=== PATIENT | male | born 1970 | race Caucasian/White ===

== ENCOUNTER 2020-01-04 15:20 | Emergency (ER) | payer SELFPAY ==
[2020-01-04 15:26] VITALS: TEMP 98.5; BMI 28.8
--- NOTE | 2020-01-04 16:52 | PDOC ---
History of Present Illness - General History Source: Patient - History of Present Illness Initial Comments: 01/04/20 16:36 49 y/o Indonesian speaking M w/hx EtOH use disorder BIBEMS s/p seizure. He reports going to the grocery store with a friend, and waking up on the ambulance. He reports most recent seizure was 8 years ago, and has not required AEDs or neuro follow up since then. He reports previously drinking approx 6 drinks daily and has slowly been reducing his EtOH intake to 2 beers every other day. His most recent drink was two days ago. He denies feeling withdrawal symptoms including tremors, anxiety, palpitations. No prior withdrawal seizures. He denies any drug use. Patient spoken to via Indonesian plate sensitizer, [employer] Lettering Machine Operator ID: [id number]. <Hakeem Bellamy - Last Filed: 01/04/20 19:25> <Macy Sepulveda - Last Filed: 01/04/20 20:00> - General Chief Complaint: Altered Mental Status Stated Complaint: FALL Time Seen by Provider: 01/04/20 16:17 Past History - Medical History COPD: No Other medical history: DENIES - Immunization History Immunization Up to Date: No - Psycho-Social/Smoking History Smoking History: Never smoked - Substance Abuse Hx (Audit-C & DAST Scrn) How often the patient has a drink containing alcohol: 2-3 times / week Number of drinks the patient has on a typical day: 3 or 4 How often the patient has six or more drinks on one occasion: Never Score: In Men: 4 or > Positive; In Women: 3 or > Positive: 4 Screen Result (Pos requires Nsg. Audit-10AR): Positive In the last yr the pt used illegal drug/Rx for NonMed reason: No Score: Yes response is considered Positive: 0 Screen Result (Positive result requires Nsg. DAST-10): Negative <Hakeem Bellamy - Last Filed: 01/04/20 19:25> <Macy Sepulveda - Last Filed: 01/04/20 20:00> - Medical History Allergies/Adverse Reactions: Allergies Allergy/AdvReac Type Severity Reaction Status Date / Time No Known Allergies Allergy Verified 01/04/20 15:23 *Physical Exam - Vital Signs Last Vital Signs Temp Pulse Resp BP Pulse Ox 98.5 F 90 18 162/96 100 01/04/20 15:23 01/04/20 15:23 01/04/20 15:23 01/04/20 15:23 01/04/20 15:23 <Hakeem Bellamy - Last Filed: 01/04/20 19:25> - Vital Signs Last Vital Signs Temp Pulse Resp BP Pulse Ox 98.5 F 90 18 162/96 100 01/04/20 15:23 01/04/20 15:23 01/04/20 15:23 01/04/20 15:23 01/04/20 15:23 <Macy Sepulveda - Last Filed: 01/04/20 20:00> ED Treatment Course - LABORATORY CBC & Chemistry Diagram: 01/04/20 15:30 01/04/20 15:30 <Hakeem Bellamy - Last Filed: 01/04/20 19:25> - LABORATORY CBC & Chemistry Diagram: 01/04/20 15:30 01/04/20 15:30 - ADDITIONAL ORDERS Additional order review: Laboratory Results 01/04/20 15:30 Sodium 133 L Potassium 3.6 Chloride 94 L Carbon Dioxide 24 Anion Gap 15 BUN 5.5 L Creatinine 0.9 Est GFR (CKD-EPI)AfAm 117.47 Est GFR (CKD-EPI)NonAf 101.35 Random Glucose 98 Calcium 9.5 Total Bilirubin 0.5 AST 170 H ALT 133 H Alkaline Phosphatase 93 Total Protein 8.1 Albumin 4.1 01/04/20 15:30 RBC 4.16 MCV 92.1 MCHC 33.5 RDW 13.0 MPV 8.9 Neutrophils % 71.1 Lymphocytes % 19.8 Monocytes % 7.6 Eosinophils % 0.5 Basophils % 1.0 - Medications Given in the ED: ED Medications Discontinued Medications Generic Name Dose Route Start Last Admin Trade Name Freq PRN Reason Stop Dose Admin Chlordiazepoxide HCl 50 mg 01/04/20 17:15 01/04/20 18:00 Librium - PO 01/04/20 17:16 50 mg ONCE ONE Administration <Macy Sepulveda - Last Filed: 01/04/20 20:00> Discharge <Hakeem Bellamy - Last Filed: 01/04/20 19:25> - Discharge Information Problems reviewed: Yes - Admission No <Macy Sepulveda - Last Filed: 01/04/20 20:00> - Discharge Information Clinical Impression/Diagnosis: Alcohol abuse, Seizure Condition: Stable Disposition: HOME - Follow up/Referral Referrals: Socrates Lamb MD [Staff Physician] - - Patient Discharge Instructions Patient Printed Discharge Instructions: Alcohol Use Disorder, DI for Drug or Alcohol Withdrawal Additional Instructions: Patient Name: BILL MERLOS THIS IS A PRELIMINARY REPORT FROM [facility] SPECIAL MAKEUP FX ARTIST INSTRUCTOR DATE OF SERVICE: 2020-01-04 17:31:50 IMAGES: 251 EXAM: CT HEAD WITHOUT IV CONTRAST TECHNIQUE: Axial images from the skull base to the vertex. Bone and soft tissue windows were reviewed. One or more of the following dose reduction techniques were used: automated exposure control, adjustment of the mA and/or kV according to patient size, use of iterative reconstructive technique. Contrast: None REASON FOR EXAM: Seizure. COMPARISON: None. FINDINGS: Mild diffuse brain parenchymal atrophy with preservation of the daniels-white differentiation. There is no acute intracranial hemorrhage, mass effect or midline shift. No abnormal intra-axial or extra-axial fluid collection is seen. The periventricular white matter is unremarkable. The ventricles and basilar cisterns are maintained. The bones of the calvarium and imaged skull base demonstrate no acute abnormality. The imaged paranasal sinuses and mastoid air cells : Partial opacification of the left maxillary antrum.. IMPRESSION: 1. No acute territorial infarct, hemorrhage, or space-occupying mass. --- Follow up with your primary care doctor within 3 days regarding your ER visit. Your care is not complete until you follow up. Follow up with a neurologist within 1 week regarding your ER visit. Your care is not complete until you follow up. I have provided you with a referral. Stopping drinking alcohol cold can result in seizure and . Please seek a detoxification program and rehabilitation services at [facility]. [place] [id number] Getting you back on track is our goal [facility] primarily serves individuals of [facility] in need of Behavioral Health Services and is committed to meeting the needs of these patients. We are committed to providing education, promoting health literacy, encouraging preventive health practices, to effectively impact upon the health conditions and status of the community. We work to broaden access to primary care and coordinate services. As a medical provider we offer extensive primary and specialty outpatient services to the medically underserved population of [place]. Services are provided at all times in a manner consistent with high quality, professional expertise and personalized care of patients and their families. [facility] and Behavioral Health Services - The Behavioral Health Services Department of [facility] is a comprehensive and multifaceted service delivery network. Programs are designed to provide a full continuum of care for those seeking chemical dependency treat ment. HIV/AIDS - The HOPE (Healthcare Opportunities Provided with Excellence) Center is dedicated to providing comprehensive care in a compassionate, professional, respectful and ethical manner to every HIV-infected patient and his or her family in [facility]. HYI - As part of our commitment to community health, we participate in and have taken a leadership role in the Healthy [place] Initiative, a community wide partnership aimed at addressing community health concerns of the highest priority. [facility] is accredited by the [facility] Dep[facility] tment and Joint Commission on Accreditation of Hospitals. [facility] is committed to the highest standards of health care. We are conveniently located and easily accessible from all [facility] as well as [place]. To use our Physician Referral Service call [phone]). - Post Discharge Activity Work/Back to School Note: Back to Work
[2020-01-04] MEDS ORDERED: chlordiazePOXIDE HCL 25 MG CAPSULE PO ONE (17:15)
--- NOTE | 2020-01-04 17:21 | PDOC ---
Documentation entered by Jennifer Frederick SCRIBE, acting as scribe for Coretta Saleh MD. Coretta Saleh MD: This documentation has been prepared by the scribe, Jennifer Frederick SCRIBE, under my direction and personally reviewed by me in its entirety. I confirm that the documentation accurately reflects all work, treatment, procedures, and medical decision making performed by me. Attending Attestation - Resident Resident Name: MiaHakeem - ED Attending Attestation I have performed the following: I have examined & evaluated the patient, The case was reviewed & discussed with the resident, I agree w/resident's findings & plan, Exceptions are as noted - HPI HPI: 01/04/20 17:07 The patient is a 49 year old male with a significant past medical history of seizure disorder no longer requiring AEDs (8 years) and etoh abuse who presents to the emergency department, [facility], for a fall and AMS. Patient reports he passed out and was found behind a building; he notes this has happened once before. Patient denies complaints but has tremors in BUE. States he has been weening himself from etoh and is down to 2 beers every other day. States he woke up today feeling "weird" but without any other complaints. Last drink 2 days ago. Last remembers going to the supermarket with a friend and then waking up in the ambulance. Currently reports feeling better. Patient states he does not think he is withdrawing from etoh. Patient denies: fever, chills, headache, dizziness, SOB, nausea, vomiting, cough, chest pain, diarrhea, constipation, dysuria, frequency, urgency, hematuria, or any other related symptoms. Allergies: NKDA 01/04/20 17:19 - Physicial Exam PE: 01/04/20 17:14 General: non-toxic appearing HEENT: small amount of redness above L orbit, no additional bruising or abrasions noted Chest: CTAB, good air entry CVS: + s1 s2 Neuro: Aox3, speech fluent, face symmetric, +tremulousness, responds appropriately to questions, no focal deficits - Medical Decision Making 01/04/20 17:16 49 yo M with suspected seizure, possible etoh withdrawal seizure vs. seizure 2/2 seizure disorder (reports has not required AEDs in many years). Plan: -labs -CT head -librium -reassess This clinical encounter is taking place during a federal and state health care emergency attributable to the novel Wheat Virus pandemic. The [place] of the Department of Health and Human Services has declared, pursuant to the Public Health Service Act 319F-3 (42 U.S.C. 247d-6d), that a covered persons activities related to medical countermeasures against COVID-19 will be immune from liability under Federal and State law. Pt. signed out to incoming night team Heart Score/ECG Review - ECG Impressions Comment:: 01/04/20 17:17 sinus, rate [address] elevations Discharge - Discharge Information Problems reviewed: Yes Clinical Impression/Diagnosis: Alcohol abuse, Seizure Condition: Stable Disposition: HOME - Follow up/Referral Referrals: Socrates Lamb MD [Staff Physician] - - Patient Discharge Instructions Patient Printed Discharge Instructions: Alcohol Use Disorder, DI for Drug or Alcohol Withdrawal Additional Instructions: Patient Name: BILL MERLOS THIS IS A PRELIMINARY REPORT FROM [facility] DUST MIXER DATE OF SERVICE: 2020-01-04 17:31:50 IMAGES: 251 EXAM: CT HEAD WITHOUT IV CONTRAST TECHNIQUE: Axial images from the skull base to the vertex. Bone and soft tissue windows were reviewed. One or more of the following dose reduction techniques were used: automated exposure control, adjustment of the mA and/or kV according to patient size, use of iterative reconstructive technique. Contrast: None REASON FOR EXAM: Seizure. COMPARISON: None. FINDINGS: Mild diffuse brain parenchymal atrophy with preservation of the daniels-white differentiation. There is no acute intracranial hemorrhage, mass effect or midline shift. No abnormal intra-axial or extra-axial fluid collection is seen. The periventricular white matter is unremarkable. The ventricles and basilar cisterns are maintained. The bones of the calvarium and imaged skull base demonstrate no acute abnormality. The imaged paranasal sinuses and mastoid air cells : Partial opacification of the left maxillary antrum.. IMPRESSION: 1. No acute territorial infarct, hemorrhage, or space-occupying mass. --- Follow up with your primary care doctor within 3 days regarding your ER visit. Your care is not complete until you follow up. Follow up with a neurologist within 1 week regarding your ER visit. Your care is not complete until you follow up. I have provided you with a referral. Stopping drinking alcohol cold turkey can result in seizure and . Please seek a detoxification program and rehabilitation services at [facility]. [place] [phone] Getting you back on track is our goal [facility] primarily serves individuals of [facility] in need of Behavioral Health Services and is committed to meeting the needs of these patients. We are committed to providing education, promoting health literacy, encouraging preventive health practices, to effectively impact upon the health conditions and status of the community. We work to broaden access to primary care and coordinate services. As a medical provider we offer extensive primary and specialty outpatient services to the medically underserved population of [facility]. Services are provided at all times in a manner consistent with high quality, professional expertise and personalized care of patients and their families. [facility] and Behavioral Health Services - The Behavioral Health Services Department of [facility] is a comprehensive and multifaceted service delivery network. Programs are designed to provide a full continuum of care for those seeking chemical dependency treatment. HIV/AIDS - The HOPE (Healthcare Opportunities Provided with Excellence) Center is dedicated to providing comprehensive care in a compassionate, professional, respectful and ethical manner to every HIV-infected patient and his or her family in [facility]. HYI - As part of our commitment to community health, we participate in and have taken a leadership role in the Healthy [place] Initiative, a community wide partnership aimed at addressing community health concerns of the highest priority. [facility] is accredited by the [place] [facility] and Joint Commission on Accreditation of Hospitals. [facility] is committed to the highest standards of health care. We are conveniently located and easily accessible from all [facility] as well as [place]. To use our Physician Referral Service call [phone]). - Post Discharge Activity Work/Back to School Note: Back to Work
[2020-01-04 17:26] LABS: EOS % 0.5 % (0-4.5); HEMATOCRIT 38.3 % (35.4-49); HEMOGLOBIN 12.9 GM/dL (11.7-16.9); LYMPH % 19.8 % (8-40); MCH 30.9 pg (25.7-33.7); MCHC 33.5 g/dl (32.0-35.9); MEAN CELL VOLUME 92.1 fl (80-96); MEAN PLT VOLUME 8.9 fl (7.5-11.1); MONO % 7.6 % (3.8-10.2); NEUT % 71.1 % (42.8-82.8); PLATELET COUNT 118 K/MM3 (134-434); RBC 4.16 M/mm3 (4.00-5.60); WHITE BLOOD COUNT 5.9 K/mm3 (4.0-10.0)
[2020-01-04] MEDS ORDERED: chlordiazePOXIDE HCL 25 MG CAPSULE ONE (17:55)
[2020-01-04 18:11] LABS: ALBUMIN 4.1 g/dl (3.4-5.0); BILIRUBIN,TOTAL 0.5 mg/dL (0.2-1); BLOOD UREA NITROGEN 5.5 mg/dL (7-18); CALCIUM 9.5 mg/dL (8.5-10.1); CREATININE 0.9 mg/dL (0.55-1.3); POTASSIUM 3.6 mmol/L (3.5-5.1); TOT PROT 8.1 g/dl (6.4-8.2)
--- NOTE | 2020-01-04 19:48 | PDOC ---
*Physical Exam - Vital Signs Last Vital Signs Temp Pulse Resp BP Pulse Ox 98.5 F 90 18 162/96 100 01/04/20 15:23 01/04/20 15:23 01/04/20 15:23 01/04/20 15:23 01/04/20 15:23 ED Treatment Course - LABORATORY CBC & Chemistry Diagram: 01/04/20 15:30 01/04/20 15:30 - ADDITIONAL ORDERS Additional order review: Laboratory Results 01/04/20 15:30 Sodium 133 L Potassium 3.6 Chloride 94 L Carbon Dioxide 24 Anion Gap 15 BUN 5.5 L Creatinine 0.9 Est GFR (CKD-EPI)AfAm 117.47 Est GFR (CKD-EPI)NonAf 101.35 Random Glucose 98 Calcium 9.5 Total Bilirubin 0.5 AST 170 H ALT 133 H Alkaline Phosphatase 93 Total Protein 8.1 Albumin 4.1 01/04/20 15:30 RBC 4.16 MCV 92.1 MCHC 33.5 RDW 13.0 MPV 8.9 Neutrophils % 71.1 Lymphocytes % 19.8 Monocytes % 7.6 Eosinophils % 0.5 Basophils % 1.0 - Medications Given in the ED: ED Medications Discontinued Medications Generic Name Dose Route Start Last Admin Trade Name Freq PRN Reason Stop Dose Admin Chlordiazepoxide HCl 50 mg 01/04/20 17:15 01/04/20 18:00 Librium - PO 01/04/20 17:16 50 mg ONCE ONE Administration Medical Decision Making - Medical Decision Making 01/04/20 19:45 Patient Name: BILL MERLOS THIS IS A PRELIMINARY REPORT FROM [facility] HEEL TOP LIFT SPLITTER DATE OF SERVICE: 2020-01-04 17:31:50 IMAGES: 251 EXAM: CT HEAD WITHOUT IV CONTRAST TECHNIQUE: Axial images from the skull base to the vertex. Bone and soft tissue windows were reviewed. One or more of the following dose reduction techniques were used: automated exposure control, adjustment of the mA and/or kV according to patient size, use of iterative reconstructive technique. Contrast: None REASON FOR EXAM: Seizure. COMPARISON: None. FINDINGS: Mild diffuse brain parenchymal atrophy with preservation of the daniels-white differentiation. There is no acute intracranial hemorrhage, mass effect or midline shift. No abnormal intra-axial or extra-axial fluid collection is seen. The periventricular white matter is unremarkable. The ventricles and basilar cisterns are maintained. The bones of the calvarium and imaged skull base demonstrate no acute abnormality. The imaged paranasal sinuses and mastoid air cells : Partial opacification of the left maxillary antrum.. IMPRESSION: 1. No acute territorial infarct, hemorrhage, or space-occupying mass. I received pt on signout; seizure after alcohol abuse; he is detoxing himself at home. Refusing admission to medicine and admission to detox. He will be discharged home. Discharge - Discharge Information Problems reviewed: Yes Clinical Impression/Diagnosis: Alcohol abuse Condition: Stable Disposition: HOME - Follow up/Referral - Patient Discharge Instructions Patient Printed Discharge Instructions: Alcohol Use Disorder, DI for Drug or Alcohol Withdrawal - Post Discharge Activity
[2020-01-04 20:17] VITALS: BP 148/89; PULSE 86
--- NOTE | 2020-01-05 15:10 | EKG ---
Test Reason : Blood Pressure : / mmHG Vent. Rate : 066 BPM Atrial Rate : 066 BPM P-R Int : 176 ms QRS Dur : 084 ms QT Int : 424 ms P-R-T Axes : 064 031 025 degrees QTc Int : 444 ms NORMAL SINUS RHYTHM POSSIBLE LEFT ATRIAL ENLARGEMENT LEFT VENTRICULAR HYPERTROPHY CANNOT RULE OUT SEPTAL INFARCT , AGE UNDETERMINED ABNORMAL ECG NO PREVIOUS ECGS AVAILABLE Confirmed by MD Joseluis, Rock ([id number]) on 01/05/2020 3:09:39 PM Referred By: Confirmed By:Rock Huggins MD
== END 2020-01-04 20:11 | disposition home or self-care (01) ==
LOC: JER 15:20
DX: F10.10 Alcohol abuse, uncomplicated (principal)
CPT/HCPCS: 36415; 70450-TC; 80053; 85025; 93005; 93010; 99285-25